=== PATIENT | male | born 1995 | race Caucasian/White ===

== ENCOUNTER 2022-07-05 20:32 | Emergency (ER) | payer OTHER ==
[2022-07-05 20:42] VITALS: BP 115/74; PULSE 92; RESP 18; TEMP 98.1; BMI 31.7
[2022-07-05] MEDS ORDERED: RABIES VACCINE (PCEC)/PF 2.5 UNIT/VIAL IM ONE ×2 (21:40→21:47)
[2022-07-05] MEDS ORDERED: DIPHTH,PERTUSS(ACELL),TET 0.5 ML DISP.SYRIN IM ONE ×2 (21:40→21:47)
[2022-07-05] MEDS ORDERED: RABIES IMMUNE GLOBULIN 300 UNITS/1 ML VIAL IM ONE (21:40)
[2022-07-05] MEDS ORDERED: RABIES IMMUNE GLOBULIN 300 UNITS/1 ML VIAL ONE (21:47)
[2022-07-05] MEDS ORDERED: LIDOCAINE HCL 2% (20ML MULTI-DOSE VIAL) ONE (22:10)
== END 2022-07-05 23:33 | disposition home or self-care (01) ==
LOC: JERFT 20:32 → JER 20:32 → JERFT 23:33
PROC: 0HQKXZZ Repair Right Lower Leg Skin, External Approach (ICD-10-PCS; principal; 2022-07-05)
PROC: 3E0234Z Introduction of Serum, Toxoid and Vaccine into Muscle, Percutaneous Approach (ICD-10-PCS; 2022-07-05)
PROC: 3E0234Z Introduction of Serum, Toxoid and Vaccine into Muscle, Percutaneous Approach (ICD-10-PCS; 2022-07-05)
PROC: 3E0234Z Introduction of Serum, Toxoid and Vaccine into Muscle, Percutaneous Approach (ICD-10-PCS; 2022-07-05)
DX: S81.801A Unspecified open wound, right lower leg, initial encounter (principal); W54.0XXA Bitten by dog, initial encounter
CPT/HCPCS: 12006; 73590-TC-RT-FY; 90375; 90471; 90675; 90715; 99284-25